=== PATIENT | male | born 1985 | race Hispanic/Latino ===

== ENCOUNTER 2018-06-18 14:10 | Inpatient (IN) | payer SELFPAY ==
[~2018-06-18] VITALS: Ht 172.7 cm; Wt 85.0 kg
[~2018-06-18 14:10] MED LIST: IBUPROFEN600 MG PO; PREDNISONE10 MG PO
[2018-06-18] MEDS ORDERED: GLUCOPHAGE1000 MG PO (14:31)
--- NOTE | 2018-06-19 08:06 | EKG ---
[facility] [address] [facility] [place] [address] Signed Atrial fibrillation with rapid ventricular response Nonspecific T wave abnormality Abnormal ECG No previous ECGs available Confirmed by DEON MACHADO MD ([id number]) on 06/19/2018 8:06:34 AM Electronically Signed By: DEON MACHADO MD 06/19/18 08 PATIENT NAME: LISAVEROMERY Electrocardiogram DATE OF : 85 PHYSICIAN: DEON MACHADO MD REPORT #: [id number] REPORT IS CONFIDENTIAL AND NOT TO BE RELEASED WITHOUT AUTHORIZATION
--- NOTE | 2018-06-19 08:06 | EKG ---
[facility] [address] [facility] [place] [address] Signed Sinus tachycardia with occasional premature ventricular complexes Nonspecific T wave abnormality Abnormal ECG No previous ECGs available Confirmed by DEON MACHADO MD ([id number]) on 06/19/2018 8:06:26 AM Electronically Signed By: DEON MACHADO MD 06/19/18 0806 PATIENT NAME: LISAVEROMERY Electrocardiogram DATE OF : [birth year] PHYSICIAN: DEON MACHADO MD REPORT #: [id number] REPORT IS CONFIDENTIAL AND NOT TO BE RELEASED WITHOUT AUTHORIZATION
[2018-06-19] MEDS ORDERED: CHLORDIAZEPOXID25 MG PO (10:33)
[2018-06-19] MEDS ORDERED: GLUCOPHAGE1000 MG PO (10:34)
[2018-06-19] MEDS ORDERED: METFORMIN HCL1000 MG PO (11:04)
[2018-06-19] MEDS ORDERED: LISINOPRIL5 MG PO (11:04)
== END 2018-06-19 11:15 | disposition home or self-care (01) | DRG 309 ==
LOC: ED 14:10 → CCU 17:12
PROVIDERS: ADMIT Internal Medicine
DX: I48.91 Unspecified atrial fibrillation (principal); F10.230 Alcohol dependence with withdrawal, uncomplicated; E11.9 Type 2 diabetes mellitus without complications; I10 Essential (primary) hypertension
CPT/HCPCS: 71045; 80053; 83690; 83735; 83880; 84484; 85025; 85610; 93005; 93010; G0480; J1650; J1815; J3411; J7030

== ENCOUNTER 2018-08-23 09:03 | Emergency (ER) | payer OTHER ==
[~2018-08-23] VITALS: Ht 172.7 cm; Wt 85.0 kg
--- OUTSIDE RECORDS SUMMARY | ~2018-08-23 | XMS | Clinical Summary ---
Demographics + + + | Address | [address] | | | [place] [address] | + + + | Home Phone | | + + + | Preferred Language | Unknown | + + + | Marital Status | | + + + | Restoration Affiliation | Unknown | + + + | Race | Unknown | + + + | Ethnic Group | Unknown | + + + Author + + + | Author | [facility] | + + + | Organization | [facility] | + + + | Address | Unknown | + + + | Phone | Unavailable | + + + Support + + +---------+ + | Name | Relationship | Address | Phone | + + +---------+ + | Juan Fry | ECON | Unknown | | + + +---------+ + | Cate Rosen | ECON | Unknown | | + + +---------+ + | Detailed,Message | ECON | Unknown | | + + +---------+ + Care Team Providers + +------+ + | Care Manager Of Tax Name | Role | Phone | + +------+ + | Medicine, [place] | PP | Unavailable | | Family | | | + +------+ + Allergies No Known Allergies Current Medications + + +--------+---------+------+------+-------+ | Prescription | Sig. | Disp. | Refills | Star | End | Statu | | | | | | t | Date | s | | | | | | Date | | | + + +--------+---------+------+------+-------+ | metFORMIN | Take 1 tablet by | 60 | 11 | 08/1 | | Activ | | (GLUCOPHAGE) 500 MG | mouth 2 (two) times | tablet | | 11/08 | | e | | tabletIndications: | daily with meals. | | | 15 | | | | Type 2 diabetes | | | | | | | | mellitus with | | | | | | | | hyperglycemia (HCC) | | | | | | | + + +--------+---------+------+------+-------+ Active Problems + + + | Problem | Noted Date | + + + | Type 2 diabetes mellitus with hyperglycemia (HCC) | 05/30/2015 | + + + | DKA (diabetic ketoacidoses) | 02/08/2015 | + + + | Tachypnea | 02/08/2015 | + + + | Metabolic acidosis | 02/08/2015 | + + + | Atrial fibrillation (HCC) | 02/08/2015 | + + + | Polyuria | 02/08/2015 | + + + Immunizations + + + + | Name | Dates Previously Given | Next Due | + + + + | Pneumococcal | 02/09/2015 | | | Polysaccharide | | | | 23-valent | | | + + + + Family History + + +------+ + | Medical History | Relation | Name | Comments | + + +------+ + | Diabetes type II | Maternal | | | | | Grandmoth | | | | | er | | | + + +------+ + | Hypertension | Mother | | | + + +------+ + | Diabetes type II | Paternal | | | | | Grandmoth | | | | | er | | | + + +------+ + + +------+--------+ + | Relation | Name | Status | Comments | + +------+--------+ + | Maternal Grandmother | | | | + +------+--------+ + | Mother | | | | + +------+--------+ + | Paternal Grandmother | | | | + +------+--------+ + Social History + +-------+ +--------+------+ | Tobacco Use | Types | Packs/Day | Years | Date | | | | | Used | | + +-------+ +--------+------+ | Former Smoker | | | | | + +-------+ +--------+------+ + + +---------+ + | Alcohol Use | Drinks/We | oz/Week | Comments | | | ek | | | + + +---------+ + | Yes | 12 Cans | 7.2 | | | | of beer | | | + + +---------+ + + + + | Sex Assigned at | Date Recorded | | | | + + + | Not on file | | + + + Last Filed Vital Signs + + + + | Vital Sign | Reading | Time Taken | + + + + | Blood Pressure | 130/74 | 05/30/2015 2:29 PM PDT | + + + + | Pulse | 102 | 05/30/2015 2:29 PM PDT | + + + + | Temperature | 37.2 C (99 F) | 02/10/2015 11:02 AM PDT | + + + + | Respiratory Rate | 20 | 05/30/2015 2:29 PM PDT | + + + + | Oxygen Saturation | 97% | 05/30/2015 2:29 PM PDT | + + + + | Inhaled Oxygen | - | - | | Concentration | | | + + + + | Weight | 103.9 kg (229 lb) | 05/30/2015 2:29 PM PDT | + + + + | Height | 175.3 cm (5' 9") | 03/14/2015 2:15 PM PDT | + + + + | Body Mass Index | 33.82 | 05/30/2015 2:29 PM PDT | + + + + Plan of Treatment + + + + + | Health Maintenance | Due Date | Last Done | Comments | + + + + + | Diabetic Eye Exam | | | | | | 5 | | | + + + + + | Diabetic Foot Exam | | | | | | 5 | | | + + + + + | Microalbumin | | | | | Screening | 5 | | | + + + + + | Vaccine: | | | | | Dtap/Tdap/Td (1 - | 4 | | | | Tdap) | | | | + + + + + | Hemoglobin A1c | | 02/09/2015 | | | | 5 | | | + + + + + | Vaccine: Influenza | | | | | (#1) | 8 | | | + + + + + | Vaccine: | Completed | 02/09/2015 | | | Pneumococcal 19-64 | | | | | (PPSV23 only) Medium | | | | | Risk | | | | + + + + + Results Not on filefrom Last 3 Months Insurance + +--------+ +------+-------+ + | Payer | Benefi | Subscriber | Type | Phone | Address | | | t Plan | ID | | | | | | / | | | | | | | Group | | | | | + +--------+ +------+-------+ + | MEDICAID | MEDICA | [id number] | | | [address] | | | ID - | | | | [place] | | | [place] | | | | [phone] | + +--------+ +------+-------+ + + +--------+ +--------+ + + | Guarantor Name | Accoun | Relation to | Date | Phone | Billing Address | | | t Type | Patient | of | | | | | | | | | | + +--------+ +--------+ + + | KELVIN FRY | Person | Self [birth year] Home: | [address] | | | al/Fam | | 1985 | [phone] | [place] [address] | | | mercedes | | | [phone] | | + +--------+ +--------+ + +
--- OUTSIDE RECORDS SUMMARY | ~2018-08-23 | XMS | Clinical Summary ---
Demographics + + + | Address | [address] | | | [place] [address] | + + + | Home Phone | | + + + | Preferred Language | Unknown | + + + | Marital Status | | + + + | Yazidi Affiliation | Unknown | + + + | Race | Unknown | + + + | Ethnic Group | Unknown | + + + Author + + + | Author | [facility] | + + + | Organization | [facility] | + + + | Address [...] Team Providers + +------+ + | Care Blister Rust Eradicator Name | Role | Phone | + +------+ + | Medicine, [place] | PP | Unavailable | | Family [...] +------+-------+ + | MEDICAID | MEDICA | [id number] | | | [address] | | | ID - | | | | [place] | | | [place] | | | | [phone] | + +--------+ +------+-------+ + + +--------+ [...] | | al/Fam | | 1985 | [phone] | [place] [address] | | | mercedes | | | [phone] | | + +--------+ +--------+ + +
[~2018-08-23 09:03] MED LIST changes: +CHLORDIAZEPOXID25 MG PO; +GLUCOPHAGE1000 MG PO; +LISINOPRIL5 MG PO; +METFORMIN HCL1000 MG PO
[2018-08-24] MEDS ORDERED: NEURONTIN300 MG PO (10:57)
== END 2018-08-23 10:01 | disposition home or self-care (01) ==
LOC: ED 09:03
DX: M79.671 Pain in right foot (principal); M79.672 Pain in left foot; E11.9 Type 2 diabetes mellitus without complications; I10 Essential (primary) hypertension; Z79.899 Other long term (current) drug therapy; Z79.84 Long term (current) use of oral hypoglycemic drugs
CPT/HCPCS: 99283

== ENCOUNTER 2018-08-24 09:01 | Emergency (ER) | payer SELFPAY ==
[~2018-08-24] VITALS: Ht 172.7 cm; Wt 85.0 kg
--- OUTSIDE RECORDS SUMMARY | ~2018-08-24 | XMS | Clinical Summary ---
Demographics + + + | Address | [address] | | | [place] [address] | + + + | Home Phone | | + + + | Preferred Language | Unknown | + + + | Marital Status | | + + + | Muslim Affiliation | Unknown | + + + | Race | Unknown | + + + | Ethnic Group | Unknown | + + + Author + + + | Author | [facility] | + + + | Organization | [facility] | + + + | Address [...] Team Providers + +------+ + | Care Mechanical Maintenance Engineer Name | Role | Phone | + +------+ + | Medicine, [place] | PP | Unavailable | | Family [...] +------+-------+ + | MEDICAID | MEDICA | [id number] | | | [address] | | | ID - | | | | [place] | | | [place] | | | | [phone] | + +--------+ +------+-------+ + + +--------+ [...] | | al/Fam | | 1985 | [phone] | [place] [address] | | | mercedes | | | [phone] | | + +--------+ +--------+ + +
--- OUTSIDE RECORDS SUMMARY | ~2018-08-24 | XMS | Clinical Summary ---
Demographics + + + | Address | [address] | | | [place] [address] | + + + | Home Phone | | + + + | Preferred Language | Unknown | + + + | Marital Status | | + + + | Hinduism Affiliation | Unknown | + + + | Race | Unknown | + + + | Ethnic Group | Unknown | + + + Author + + + | Author | [facility] | + + + | Organization | [facility] | + + + | Address [...] Team Providers + +------+ + | Care Piano Maker Name | Role | Phone | + +------+ + | Medicine, [place] | PP | Unavailable | | Family [...] +------+-------+ + | MEDICAID | MEDICA | [id number] | | | [address] | | | ID - | | | | [place] | | | [place] | | | | [phone] | + +--------+ +------+-------+ + + +--------+ [...] | 1985 | [phone] | [place] [address] | | | mercedes | | | [phone] | | + +--------+ +--------+ + +
--- OUTSIDE RECORDS SUMMARY | 2018-08-24 09:06 | XMS ---
PreManage Notification: VERO GONZALEZ Security Billing Analyst Events No recent Security Events currently on file CRITERIA MET - [facility] - 2 Visits in 30 Days CARE PROVIDERS There are no care providers on record at this time. Margaret has no Care Guidelines for this patient. [facility] MO.) [facility] NOTE: Visits indicate total known visits. ED/C VISIT TRACKING (12 MO.) [facility] COMPLAINT: - BILAT LEG PAIN,NON INJURY 08/23/2018 09:04 [facility] [place] TYPE: Emergency COMPLAINT: - BILAT LEG PAIN/NO INJURY 06/18/2018 14:10 [facility] [place] TYPE: Emergency COMPLAINT: - CHEST PAIN INPATIENT VISIT TRACKING (12 MO.) 06/18/2018 17:12 [facility] [place] TYPE: Critical Care COMPLAINT: - A FIB W/ RVR DIAGNOSES: - Alcohol dependence with withdrawal, uncomplicated - Type 2 diabetes mellitus without complications - Unspecified atrial fibrillation - Essential (primary) hypertension [email or web address]
[2018-08-24] MEDS ORDERED: NEURONTIN300 MG PO (10:57)
== END 2018-08-24 11:24 | disposition home or self-care (01) ==
LOC: ED 09:01
DX: E11.65 Type 2 diabetes mellitus with hyperglycemia (principal); M79.672 Pain in left foot; M79.671 Pain in right foot; I10 Essential (primary) hypertension; Z79.899 Other long term (current) drug therapy; Z79.84 Long term (current) use of oral hypoglycemic drugs
CPT/HCPCS: 99283